=== PATIENT | male | born 1970 | race Two or more races ===

== ENCOUNTER 2016-07-19 13:59 | Outpatient (CLI) | payer BC | END 2016-07-19 23:59 | disposition home or self-care (01) | LOC: WOU 13:59 | PROVIDERS: ATTEND Podiatrist Foot & Ankle Surgery | DX: L02.612 Cutaneous abscess of left foot (principal); E11.42 Type 2 diabetes mellitus with diabetic polyneuropathy; L84 Corns and callosities; Z72.0 Tobacco use; Z79.84 Long term (current) use of oral hypoglycemic drugs; R23.8 Other skin changes | CPT/HCPCS: 10140; 87070; 87077; 87186; A6402 ==

== ENCOUNTER → 2016-09-23 | Outpatient (CLI) | payer BC | END | disposition home or self-care (01) | LOC: WOU 08:35 | PROVIDERS: ATTEND Podiatrist Foot & Ankle Surgery | DX: E11.42 Type 2 diabetes mellitus with diabetic polyneuropathy (principal); M20.42 Other hammer toe(s) (acquired), left foot; L84 Corns and callosities; Z72.0 Tobacco use; Z79.84 Long term (current) use of oral hypoglycemic drugs; Z79.4 Long term (current) use of insulin | CPT/HCPCS: 99214; A6402; G0463 ==

== ENCOUNTER 2017-03-28 08:15 | Outpatient (CLI) | payer BC ==
[2017-03-28] MEDS ORDERED: PHEN37.511 PO (11:37)
== END 2017-03-28 23:59 | disposition home or self-care (01) ==
LOC: WOU 08:15
PROVIDERS: ATTEND Podiatrist Foot & Ankle Surgery
DX: E11.621 Type 2 diabetes mellitus with foot ulcer (principal); L97.519 Non-pressure chronic ulcer of other part of right foot with unspecified severity; L02.612 Cutaneous abscess of left foot; L03.116 Cellulitis of left lower limb; R60.0 Localized edema; L84 Corns and callosities; M20.42 Other hammer toe(s) (acquired), left foot; M20.41 Other hammer toe(s) (acquired), right foot; E11.42 Type 2 diabetes mellitus with diabetic polyneuropathy; Z72.0 Tobacco use
CPT/HCPCS: 11042; 99215; A6402; G0463

== ENCOUNTER 2017-03-28 10:54 | Inpatient (IN) | payer BC ==
[~2017-03-28] VITALS: Ht 167.6 cm; Wt 83.9 kg
--- NOTE | 2017-03-28 11:00 | NUR ---
PT AMBULATORY TO ER BED 12. WAS SENT BY DR BERNSTEIN FOR POSSIBLE ADMISSION FOR SURGERY. BILAT FOOT BLISTERS IN BETWEEN 5TH AND FOURTH DIGITS. PT STATES L FOOT HUIRST WORST. STABLE VITALS. AWAITING MD HILL.
[2017-03-28] MEDS ORDERED: PHEN37.511 PO (11:37)
--- NOTE | 2017-03-28 11:50 | NUR ---
RADIOLOGY AT BEDSIDE FOR L FOOT XRAY.
[2017-03-28] MEDS ORDERED: HYDROCODONE/APAP 5/325MG 1 EACH TABLET ONE (11:51)
[2017-03-28 12:00] LABS: BASOPHILS # (AUTO) 0.1 /CMM (0.0-0.2); BASOPHILS % (AUTO) 0.7 % (0.0-2.0); EOSINOPHILS # (AUTO) 0.5 /CMM (0.0-0.7); EOSINOPHILS % (AUTO) 3.5 % (0.0-6.0); HEMATOCRIT 39 % (39-51); HEMOGLOBIN 13.5 g/dL (13.5-17.5); LYMPHOCYTES # (AUTO) 2.3 /CMM (0.8-4.8); LYMPHOCYTES % (AUTO) 14.5 % (20.0-44.0); MEAN CORPUSCULAR HEMOGLOBIN 29 PG (26.0-33.0); MEAN CORPUSCULAR HGB CONC 35 g/dl (31.0-36.0); MEAN CORPUSCULAR VOLUME 83 fL (80-96); MONOCYTES % (AUTO) 6.3 % (2.0-12.0); NEUTROPHILS # (AUTO) 11.7 /CMM (1.8-8.9); PLATELET COUNT (AUTO) 256 /CMM (150-450); RDW COEFFICIENT OF VARIATION 11.7 (11.5-15.0); RED BLOOD CELL COUNT(AUTO) 4.65 MIL/uL (4.5-6.0); WHITE BLOOD COUNT (AUTO) 15.6 K/uL (4.3-11.0)
[2017-03-28] MEDS ORDERED: VANCOMYCIN 1 GM in IV D5W 250 ML IV ONE (12:00)
[2017-03-28] MEDS ORDERED: PIPERACILLIN /TAZOBACTAM 3.375 G in IV D5W 50 ML IV ONE (12:00)
[2017-03-28] MEDS ORDERED: HYDROCODONE/APAP 5/325MG 1 EACH TABLET PO ONE (12:00)
[2017-03-28 12:10] LABS: CALCIUM, SERUM 8.4 mg/dL (8.5-10.1); POTASSIUM 4.4 mmol/L (3.5-5.1)
[2017-03-28 12:15] LABS: BILIRUBIN,DIRECT 0.1 mg/dL (0.0-0.2); BILIRUBIN,TOTAL 0.4 mg/dL (0.2-1.0); TOTAL PROTEIN, SERUM 7.3 g/dL (6.4-8.2)
--- NOTE | 2017-03-28 12:35 | NUR ---
PT TO RADIOLOGY FOR FOOT MRI VIA WHEELCHAIR.
--- NOTE | 2017-03-28 14:34 | NUR ---
CALLED [facility]-ID MANAGER STORY WAS PAGED.
--- NOTE | 2017-03-28 15:49 | NUR ---
MS RN OPENING NOTES RECEIVED PT FROM ER NURSE IN STABLE CONDITION. PT WILL BE ADMITTED FOR LEFT LOWER EXTREMITY CELLULITIS. HE WILL GO TO ROOM 201 RATHER THAN 205. PT IS A/O X4. NO SOB OR SIGNS OF DISTRESS NOTED. BREATHING IS EVEN AND UNLABORED. PT IS TOLERATING RA AND SATING AT 100%. WOUND NOTED ON LEFT 5TH TOE. ORDERS FROM DR. BRITTON FOR I & D PROCEDURAL CONSENTS REVIEWED AND NOTED. PT IS NPO EXCEPT MEDS ORDERED. HE WAS ORIENTED TO HIS ROOM AND PROVIDED TOILETRIES ALONG WITH INSTRUCTIONS ON USE OF HIS CALL LIGHT. PT VERBALIZED UNDERSTANDING. DR. LOZA WAS NOTIFIED OF PT'S ARRIVAL. BED IN LOW LOCKED POSITION, SIDE RAILS UP X2, CALL LIGHT WITHIN REACH. WILL CONTINUE TO MONITOR
[2017-03-28] MEDS ORDERED: GADOVERSETAMIDE 2.5 MMOL/5 ML VIAL IJ ONE (16:59)
[2017-03-28] MEDS ORDERED: GADOVERSETAMIDE 5 MMOL/10 ML VIAL IJ ONE (16:59)
[2017-03-28] MEDS: HYDROCODONE/APAP 10/325MG 1 EA TABLET PO PRN (17:58)
--- NOTE | 2017-03-28 18:11 | NUR ---
MS RN CLOSING NOTES PT REMAINS STABLE SINCE ADMISSION. VITAL SIGNS STABLE THROUGHOUT SHIFT. CONSENTS COMPLETED FOR UPCOMING PROCEDURE. WILL ENDORSE TO NIGHTSHIFT NURSE TO COMPLETE THE CHECKLIST. ALL NEEDS MET DURING SHIFT AND DUE MEDS GIVE. DR. LOZA NOTIFIED TO INPUT ADMISSION ORDERS AND STATES "OK". WILL ENDORSE TO NIGHTSHIFT NURSE FOR LEROY
[2017-03-28] MEDS ORDERED: ACETAMINOPHEN 325 MG TABLET PO PRN (19:00)
[2017-03-28] MEDS ORDERED: HYDROCODONE/APAP 5/325MG 1 EACH TABLET PO PRN (19:00)
[2017-03-28] MEDS ORDERED: Z GUARD REMEDY 2 OZ OINT TP PRN (19:00)
[2017-03-28] MEDS ORDERED: MAG HYDROX/AL HYDROX/SIMETH 30 ML UDC PO PRN (19:00)
[2017-03-28] MEDS ORDERED: MAGNESIUM HYDROXIDE 30 ML UDC PO PRN (19:00)
[2017-03-28] MEDS ORDERED: ONDANSETRON HCL/PF 4 MG/2 ML VIAL IVP PRN (19:00)
--- NOTE | 2017-03-28 19:00 | NUR ---
MS RN NOTE: PATIENT RESTING IN BED, A/OX3. STABLE, NO ACUTE DISTRESS NOTED. BREATHING EVEN AND UNLABORED, NO SOB NOTED. BED LOCKED AND IN LOWEST POSITION, CALL LIGHT IN REACH. WILL CONTINUE TO MONITOR.
--- NOTE | 2017-03-28 19:36 | NUR ---
MS RN NOTES PT DOWN IN THE LOBBY. STATED HE MUST SPEAK TO HIS FRIEND. PT STATES THAT HE WILL BE RIGHT BACK UP. NIGHTSHIFT NURSE WITNESS TO THIS ALONG WITH .
--- NOTE | 2017-03-28 19:40 | NUR ---
MR RN NOTES PT INSISTING TO GO DOWN W/O ANY NURSE ACCOMPANY. EDUCATED THE PT HE CANNOT GO DOWN W/O ACCOMPANY BUT KEEP ON INSISTING TO GO DOWN TO TALKED TO A FRIEND, TOLD HIM THAT NO NURSE CAN ACCOMPANY HIM AT THIS MOMENT BECAUSE WE CANNOT LEAVE THE FLOOR. PT STILL INSISTING AFSATU WITNESS
[2017-03-28] MEDS ORDERED: FEE PK DOSING 1 MIN EA MC ONE (20:20)
--- NOTE | 2017-03-28 20:50 | NUR ---
1939 UPON RECEIVING REPORT FROM DAY SHIFT RN AND DOING MY ROUNDS PT INSISTING TO GO DOWN TO THE LOBBY W/O ANY NURSE ACCOMPANY. EDUCATED THE PT HE CANNOT GO DOWN W/O ACCOMPANY BUT KEEP ON INSISTING TO GO DOWN TO TALKED TO A FRIEND IN THE LOBBY, PER PT HE'S BEEN GOING DOWN WITHOUT ASSISTANCE EARLIER. TOLD HIM THAT NO NURSE CAN ACCOMPANY HIM AT THIS MOMENT BECAUSE WE CANNOT LEAVE THE FLOOR AND HE SHOULD WAIT AT LEAST 5 MINUTES SO WE CAN ACCOMPANY HIM. PT STILL INSISTING TO GO DOWN, DAY SHIFT RN WAS WITNESS, WHILE DOING MY PATIENT CARE TO DIFFERENT PT. I NOTICE PT WENT DOWN ..SECURITY WAS CALLED TO SEARCH FOR THE PATIENT AND NOWHERE TO BE FOUND...DR DENIA MALIN AWARE...SEARCHING THE WHOLE BUILDING [address] MANAGER WAS NOTIFIED 2009 TRYING TO REACH PT'S PHONE AND TALK TO HIM. 2014 SEARCHING THE WHOLE BUILDING WITH THE SECURITY [address] M[address] DIRECTOR IMMUNOLOGY DR. SNELL 2040 SECURITY CALLED ME THAT THE PT CAME BACK WENT TO E.R, RD MANAGER IS CURRENTLY TALKING TO THE PT [address] ALIS CARMONA. RELAYED PT LEFT HOSPITAL WITH HIS IV INTACT WITH HIM HOWEVER PT CAME BACK AND HE WAS GONE FOR 1:30 HOURS, RD MANAGER CURRENTLY TALKING TO THE PT. PER DR. LOPEZ. NO ORDERS.
--- NOTE | 2017-03-28 21:00 | NUR ---
PT CAME BACK IN THE FLOOR TO HIS ROOM ACCOMPANIED BY THE SECURITY, MEDICAL OFFICE SPECIALIST CALLED ME AND SHE DECIDED TO PUT THE PT BACK TO HIS ROOM AND THAT THE PT JUST HAVE AN ARGUMENT WITH HIS FRIEND. ASKED THE PT IF HE TOOK ANYTHING BECAUSE HE HAS AN IV, HE SAID NO I DID NOT TOOK ANYTHING I JUST GET MY PHONE AND HE WAS SORRY. ASKED PT WHERE DID HE GO PT STATED HE WAS OUT OF THE PREMISES. PT A/O X 4, IN STABLE CONDITION. NOT IN FORM OF DISTRESS, RESPIRATION EVEN AND UNLABORED, PAUL 3. Addendum: 03/29/17 at 0249 by NIKITA GALLEGOS RN ADDENDUM: FULL BODY ASSESSMENT IS DONE NO NEW CHANGE OF CONDITION
[2017-03-28] MEDS: IV NS 0.9% 1,000 ML IV PRN (21:28)
[2017-03-28] MEDS: ZOSYN IVPB 3.375 G in IV D5W 50ml IV SCH (21:29)
[2017-03-28 22:00] VITALS: BP 138/74
--- NOTE | 2017-03-28 23:49 | NUR ---
EDUCATED PT THAT HE CANNOT GO DOWN TO THE LOBBY W/O ACCOMPANY OF A NURSE PT VERBALIZED UNDERSTANDING. HE SAID HE WAS SORRY. I RE ASKED PT WHERE HE REALLY WENT PER PT HE WENT TO HIS HOUSE AT [place] AND HE HAD PERSONAL PROBLEMS WITH HIS FAMILY SO HE TRIES TO GET HIS PHONE.
[2017-03-29] MEDS: ZOSYN IVPB 3.375 G in IV D5W 50ml IV SCH ×5 (00:36→23:49)
[2017-03-29] MEDS: HYDROCODONE/APAP 10/325MG 1 EA TABLET PO PRN ×2 (02:25→19:31)
[2017-03-29] MEDS: VANCOMYCIN 1.5 GM in IV D5W 500ml IV SCH ×2 (05:33→18:31)
--- NOTE | 2017-03-29 06:31 | NUR ---
MS RN CLOSING NOTES PT COMFORTABLY ASLEEP AND EASILY AWAKEN, TOLERATING ROOM AIR 02 SAT 99% IN STABLE CONDITION. NOT IN FORM OF DISTRESS, RESPIRATION EVEN AND UNLABORED. KEPT CLEAN AND DRY AND COMFORTABLE, ALL NURSING CARE RENDERED. NEEDS ATTENDED AND ANTICIPATED, FREQUENT VISUAL CHECK DONE FOR SAFETY EVERY 2 HOURS. NO COMPLAINS OF PAIN. ON LOW BED AT ALL TIMES TO ENSURE SAFETY. SAFE HAZARD FREE ENVIRONMENT PROVIDED. CALL LIGHT WITHIN EASY TO REACH. WILL ENDORSE NEXT SHIFT CONTINUITY OF CARE
[2017-03-29 06:35] LABS: BASOPHILS # (AUTO) 0.1 /CMM (0.0-0.2); BASOPHILS % (AUTO) 1.1 % (0.0-2.0); EOSINOPHILS # (AUTO) 0.5 /CMM (0.0-0.7); EOSINOPHILS % (AUTO) 4.4 % (0.0-6.0); HEMATOCRIT 35 % (39-51); HEMOGLOBIN 12.4 g/dL (13.5-17.5); LYMPHOCYTES # (AUTO) 2.5 /CMM (0.8-4.8); MEAN CORPUSCULAR HEMOGLOBIN 30 PG (26.0-33.0); MEAN CORPUSCULAR HGB CONC 35 g/dl (31.0-36.0); MEAN CORPUSCULAR VOLUME 85 fL (80-96); MONOCYTES # (AUTO) 0.8 /CMM (0.1-1.30); MONOCYTES % (AUTO) 6.9 % (2.0-12.0); NEUTROPHILS # (AUTO) 7.5 /CMM (1.8-8.9); NEUTROPHILS % (AUTO) 65.6 % (43.0-81.0); PLATELET COUNT (AUTO) 236 /CMM (150-450); RDW COEFFICIENT OF VARIATION 12.4 (11.5-15.0); RED BLOOD CELL COUNT(AUTO) 4.17 MIL/uL (4.5-6.0); WHITE BLOOD COUNT (AUTO) 11.4 K/uL (4.3-11.0)
[2017-03-29 06:54] LABS: CALCIUM, SERUM 8.1 mg/dL (8.5-10.1); CREATININE 1.1 mg/dL (0.6-1.3); MAGNESIUM 1.7 mg/dL (1.8-2.4); PHOSPHORUS 3.6 mg/dL (2.5-4.9); POTASSIUM 3.8 mmol/L (3.5-5.1)
[2017-03-29 06:56] LABS: THYROID STIMULATING HORMONE 2.443 uIU/mL (0.358-3.74)
--- NOTE | 2017-03-29 07:37 | NUR ---
RN MS NOTES PT AWAKE IN BED, NO COMPLAINT OF PAIN AT THIS TIME, RESPIRATIONS NORMAL AND NOT LABORED, PT SEEN BY DR. DAY MD INFORMED THAT PT WENT OUT OF THE HOSPITAL LAST NIGHT, PLAN OF CARE DISCUSSED WITH PT, VERBALIZED UNDERSTANDING, IV FLUIDS INFUSING, CALL LIGHT PLACED WITHIN REACH.
[2017-03-29 08:00] VITALS: BP 123/82
[2017-03-29] MEDS: Magnesium 1GM/D5W 100ML PREMIX 100 ML IV SCH ×2 (10:56→15:28)
--- NOTE | 2017-03-29 11:38 | NUR ---
RN MS NOTES PT IN BED, ASLEEP, EASY TO AROUSE, NO COMPLAINT OF PAIN OR ANY DISCOMFORT, SEEN BY DR. LZOA, PLAN OF CARE DISCUSSED WITH PT, VERBALIZED UNDERSTANDING, MD MADE AWARE OF THAT PT WENT OUT OF THE BUILDING LAST NIGHT, IV FLUIDS INFUSING.
--- NOTE | 2017-03-29 12:08 | NUR ---
RN MS NOTES PT IN BED, AWAKE, ALERT AND ORIENTED, NO COMPLAINT OF PAIN AT THIS TIME, BREATHING PATTERN NORMAL, IV FLUIDS INFUSING WELL, CALL LIGHT WITHIN REACH, PICKED UP BY O.R. STAFF FOR SURGERY, LEFT VIA BED IN STABLE CONDITION.
[2017-03-29] MEDS ORDERED: DEXTROSE 50%-WATER 50 ML DISP.SYRIN IV PRN (13:00)
[2017-03-29] MEDS ORDERED: FENTANYL PF 100MCG/2ML AMPUL ONE (13:11)
[2017-03-29] MEDS ORDERED: MIDAZOLAM HCL 2 MG/2ML VIAL ONE (13:11)
[2017-03-29] MEDS ORDERED: LIDOCAINE 2% 50 ML MDV IJ ONE (13:30)
[2017-03-29 14:15] VITALS: BP 101/41
--- NOTE | 2017-03-29 14:15 | NUR ---
RN MS NOTES PT BACK FROM SURGERY VIA [facility], AWAKE, ALERT AND ORIENTED, NO COMPLAINT OF PAIN, ASSISTED TO BED, VITAL SIGNS TAKEN AND RECORDED, DRESSINGS INTACT TO BILATERAL FOOT S/P I&D BY DR. BERNSTEIN, POST OP ORDERS NOTED AND CARRIED OUT, PT EATING RIGHT NOW, KEPT BOTH FEET ELEVATED.
[2017-03-29 16:00] VITALS: BP 138/56
[2017-03-29] MEDS: BLOOD SUGAR DIAGNOSTIC 1 EACH STRIP IN SCH ×2 (17:39→22:04)
[2017-03-29] MEDS: INSULIN REGULAR, HUMAN 100 UNIT/ML 3 ML VIAL SQ PRN ×2 (18:28→22:07)
--- NOTE | 2017-03-29 18:42 | NUR ---
RN MS NOTES PT IN BED, AWAKE, ALERT AND ORIENTED, WATCHING TV, NO COMPLAINT OF PAIN, RESPIRATIONS REGULAR AND NOT LABORED, DRESSINGS TO BILATERAL FOOT INTACT, NO BLEEDING NOTED, ENCOURGED PT TO ELEVATE FEET WITH PILLOWS, VERBALIZED UNDERSTANDING, IV FLUIDS INFUSING WELL.
--- NOTE | 2017-03-29 19:30 | NUR ---
RN NOTES RECEIVED PATIENT UP IN WHEELCHAIR. AO X 3, ABLE TO MAKE NEEDS KNOWN. NO ACUTE DISTRESS NOTED. DENIES ANY PAIN AT THIS TIME. NO SYMPTOMS OF HYPER/HYPOGLYCEMIA. IV SITE PATENT, INTACT; FLUSHED. WOUND DRESSING ON FEET INTACT. SAFETY REMINDERS GIVEN. ON LOW BED WITH BILATERAL UPPER SIDE RAILS UP. CALL WOLFF WITHIN EASY REACH. WILL CONTINUE TO MONITOR.
[2017-03-29 19:39] VITALS: BP 138/76
[2017-03-29 20:00] VITALS: BP 136/76
[2017-03-29] MEDS: ZOLPIDEM TARTRATE 5 MG TABLET PO PRN (22:09)
[2017-03-30] MEDS: ZOSYN IVPB 3.375 G in IV D5W 50ml IV SCH (05:36)
[2017-03-30] MEDS: IV NS 0.9% 1,000 ML IV PRN (05:37)
[2017-03-30] MEDS: VANCOMYCIN 1.5 GM in IV D5W 500ml IV SCH ×2 (06:20→18:00)
--- NOTE | 2017-03-30 06:30 | NUR ---
RN NOTES PATIENT ASLEEP, EASILY AROUSABLE. RESPIRATIONS EVEN. NO SIGNS OF PAIN NOTED. DUE MEDS GIVEN WITH NO ASE NOTED. NEEDS ATTENDED. SAFETY PRECAUTIONS AND COMFORT MEASURES IN PLACE. WILL GIVE REPORT TO DAY SHIFT FOR CONTINUITY OF CARE.
[2017-03-30] MEDS: INSULIN REGULAR, HUMAN 100 UNIT/ML 3 ML VIAL SQ PRN ×3 (06:38→22:28)
[2017-03-30] MEDS: BLOOD SUGAR DIAGNOSTIC 1 EACH STRIP IN SCH ×4 (06:43→22:09)
[2017-03-30 06:44] VITALS: BP 131/78
[2017-03-30 06:56] LABS: BASOPHILS # (AUTO) 0.1 /CMM (0.0-0.2); BASOPHILS % (AUTO) 1.1 % (0.0-2.0); EOSINOPHILS # (AUTO) 0.4 /CMM (0.0-0.7); EOSINOPHILS % (AUTO) 4.6 % (0.0-6.0); HEMATOCRIT 36 % (39-51); HEMOGLOBIN 12.7 g/dL (13.5-17.5); LYMPHOCYTES # (AUTO) 2.2 /CMM (0.8-4.8); LYMPHOCYTES % (AUTO) 23.8 % (20.0-44.0); MEAN CORPUSCULAR HEMOGLOBIN 30 PG (26.0-33.0); MEAN CORPUSCULAR HGB CONC 35 g/dl (31.0-36.0); MEAN CORPUSCULAR VOLUME 86 fL (80-96); MONOCYTES # (AUTO) 0.7 /CMM (0.1-1.30); MONOCYTES % (AUTO) 7.8 % (2.0-12.0); NEUTROPHILS # (AUTO) 5.7 /CMM (1.8-8.9); NEUTROPHILS % (AUTO) 62.7 % (43.0-81.0); PLATELET COUNT (AUTO) 253 /CMM (150-450); RDW COEFFICIENT OF VARIATION 12.4 (11.5-15.0); RED BLOOD CELL COUNT(AUTO) 4.22 MIL/uL (4.5-6.0)
[2017-03-30 07:14] LABS: CALCIUM, SERUM 8.2 mg/dL (8.5-10.1); CREATININE 1.1 mg/dL (0.6-1.3); PHOSPHORUS 3.8 mg/dL (2.5-4.9); POTASSIUM 4.1 mmol/L (3.5-5.1)
--- NOTE | 2017-03-30 07:35 | NUR ---
RN OPENING NOTES RECEIVED PT. PT STABLE AND SLEEPING IN BED. NO S/S OF RESP DISTRESS OR SOB. S/P I/D OF LEFT FOOT ON 03/29. PER SENIOR [facility]S OFFICER REPORT, PT TO BE UP ON CHAIR FREQUENTLY WITH FEET ELEVATED.IV ACCESS LOCATED ON LEFT HAND 20 G INFUSING NS AT 75 ML/HR. SAFETY MEASURES IN PLACE, CALL LIGHT WITHIN REACH. WILL CONTINUE TO MONITOR.
[2017-03-30] MEDS ORDERED: PIPERACILLIN /TAZOBACTAM 3.375 G in IV NS 0.9% 50 ML IV SCH (12:00)
[2017-03-30 16:00] VITALS: BP 146/82
[2017-03-30] MEDS: LEVOFLOXACIN (500MG) 500 MG TABLET PO SCH (18:00)
--- NOTE | 2017-03-30 18:32 | NUR ---
RN CLOSING NOTES PT ASLEEP IN BED. NO S/S OF RESP DISTRESS. PT HAS BEEN ANXIOUS FOR THE PAST 2 HOURS, STATING THAT HE MAY LEAVE AMA. AMA PAPERWORK PREPARED, STILL UNSIGNED. PER DR. BERNSTEIN, IF PT LEAVES HAVE HIM F/U WITH MD AT OFFICE. SAFETY MEASURES IN PLACE CALL LIGHT WITHIN REACH. WILL ENDORSE TO ASSOCIATE STORE DIRECTOR FOR LEROY.
--- NOTE | 2017-03-30 19:25 | NUR ---
RN NOTES RECEIVED PATIENT SITTING UP IN BED. AWAKE, A/ O X 3, ABLE TO VERBALIZE NEEDS. NO SOB NOR ACUTE DISTRESS NOTED. DENIES ANY PAIN AT THIS TIME. NO S/S OF HYPER/HYPOGLYCEMIA NOTED. IV SITE ON LEFT HAND PATENT, INTACT; FLUSHED. WOUND DRESSING ON FEET INTACT. DENIES ANY PAIN OR DISCOMFORT AT THIS TIME. SAFETY PRECAUTIONS OBSERVED. CALL LIGHT WITHIN REACH. ALL NEEDS ATTENDED AND MET. WILL CONTINUE TO MONITOR.
--- NOTE | 2017-03-30 19:44 | NUR ---
PT IS A/O X 4, WENT OUTSIDE TO SMOKE, PT REFUSED TO BE ACCOMPANIED BY ANY STAFF, RISK AND BENEFITS EXPLAINED, PT STILL REFUSED X 3.
--- NOTE | 2017-03-30 19:46 | NUR ---
ANA CATTLE STICKER WENT OUTSIDE TO CHECK ON PT.
[2017-03-30 20:00] VITALS: BP_SYST 146; BP_SYST 151; BP_DIAS 82; BP_DIAS 90
--- NOTE | 2017-03-30 20:00 | NUR ---
PT CAME BACK FROM SMOKING OUTSIDE IN STABLE CONDITION. NO SOB NOR DISTRESS NOTED, ACCOMPANIED BY RENATA PEREZ.
[2017-03-30] MEDS: ZOLPIDEM TARTRATE 5 MG TABLET PO PRN (22:34)
[2017-03-31] MEDS: BLOOD SUGAR DIAGNOSTIC 1 EACH STRIP IN SCH ×3 (05:52→17:42)
[2017-03-31] MEDS: INSULIN REGULAR, HUMAN 100 UNIT/ML 3 ML VIAL SQ PRN ×3 (05:56→17:45)
--- NOTE | 2017-03-31 06:25 | NUR ---
PT WENT DOWN TO SMOKE, ACCOMPANIED WITH GENICE , SUPERVISOR FRAME SAMPLE AND PATTERN.
--- NOTE | 2017-03-31 06:35 | NUR ---
PT CAME BACK FROM SMOKING OUTSIDE, ACCOMPANIED WITH RENATA PEREZ
--- NOTE | 2017-03-31 06:42 | NUR ---
RN NOTES PATIENT IN BED. RESTING AT THIS TIME, A/ O X 3, ABLE TO VERBALIZE NEEDS. NO SOB NOR ACUTE DISTRESS NOTED. DENIES ANY PAIN AT THIS TIME. NO S/S OF HYPER/HYPOGLYCEMIA NOTED. IV SITE ON LEFT HAND PATENT, INTACT; FLUSHED. WOUND DRESSING ON FEET INTACT,. NO BLEEDING NOTED. SAFETY PRECAUTIONS OBSERVED. CALL LIGHT WITHIN REACH. ALL NEEDS ATTENDED AND MET. WILL ENDORSE TO NEXT SHIFT FOR LEROY.
--- NOTE | 2017-03-31 06:49 | NUR ---
PLACED A CALL TO [facility], REGARDING VANCOMYCIN IV ATB, PER [facility] THEY WILL PREPARE IT J[place]. WILL ENDORSE TO NEXT SHIFT .
[2017-03-31 07:04] LABS: CALCIUM, SERUM 8.6 mg/dL (8.5-10.1); CREATININE 0.9 mg/dL (0.6-1.3); POTASSIUM 4.8 mmol/L (3.5-5.1)
--- NOTE | 2017-03-31 07:47 | NUR ---
MS RN OPENING NOTES RECEIVED PT AWAKE IN BED IN NO ACUTE SIGNS OF DISTRESS. A/O X4, SAME VERBALLY RESPONSIVE, DENIES PAIN OR DISCOMFORTS AT THIS TIME. ON ROOM AIR, BREATHING EVEN AND UNLABORED. IV ACCESS ON LEFT HAND G#20 INTACT AND PATENT, IVF OF NS @ 75ML/HR INFUSING WELL , NO SIGNS OF PHLEBITIS OR INFILTRATION NOTED. SAFETY MEASURES IN PLACE, BED IN LOW AND LOCKED POSITION WITH CALL LIGHT WITHIN REACH. WILL CONTINUE TO MONITOR.
[2017-03-31] MEDS: VANCOMYCIN 1.5 GM in IV D5W 500ml IV SCH ×2 (07:50→17:52)
[2017-03-31 08:00] VITALS: BP 131/77
--- NOTE | 2017-03-31 08:10 | NUR ---
RN NOTES ABX VANCOMYCIN IVPB ADMINISTERED PER ENDORSED BY PRODUCT SAFETY TEST ENGINEER TO GIVE SOON IV MED DELIVERED. WILL CONTINUE TO MONITOR
[2017-03-31] MEDS: LEVOFLOXACIN (500MG) 500 MG TABLET PO SCH (18:00)
--- NOTE | 2017-03-31 18:11 | NUR ---
RN NOTES PT EXPLAINED THAT LEVAQUIN IVPB WILL BE INFUSED AFTER VANCOMYCIN IVPB THAT WAS GIVEN AT 6PM BUT PT REFUSED. WILL CONTINUE TO MONITOR.
--- NOTE | 2017-03-31 19:25 | NUR ---
RN NOTES PT IN BED WITH FAMILY AT BEDSIDE. A/O X 4, SAME ABLE TO MAKE NEEDS KNOWN. DR MADISON QUINTERO CHANGED HIS DRESSING ON HIS RIGHT FOOT. PT REFUSED PHOTO TO BE TAKEN THIS AFTERNOON. NO SIGNIFICANT CHANGES NOTED THROUGHOUT THE DAY. ALL NEEDS AND CARE ATTENDED WELL. PT FOR DISCHARGE HOME TONIGHT IF PICC LINE WILL BE INSERTED. DR PARKER INFORMED THAT SHAHIDA WILL COME TO INSERT PICC LINE FOR PT BEFORE D/C. AND CHARGE NURSE AWARE. ENDOSRED TO CARAMEL MAKER NURSE.
--- NOTE | 2017-03-31 19:30 | NUR ---
MS2/RN RECEIVE PATIENT AWAKE, ALERT, ORIENTED, COMFORTABLE, NO C/ON PAIN, NO DISTRESS NOTED. PATIENT WILL BE DISCHARGED HOME AFTER PICC LINE INSERTION. PATIENT IS VERBALIZING THAT IF PICC LINE NOT INSERTED AT 8 PM, HE WILL GO HOME. EDUCATED PATIENT ABOUT GOING HOME AGAINST MEDICAL ADVICE, ITS RISKS. VERBALIZED UNDERSTANDING BUT DID NOT CHANGE HIS MIND. WILL WAIT FOR THE PICC LINE RN.
--- NOTE | 2017-03-31 20:03 | NUR ---
MS2/RN PICC LINE INSERTION IN PROGRESS.
--- NOTE | 2017-03-31 20:20 | NUR ---
MS2/RN PICC LINE INSERTION AT RT. UPPER ARM FINISHED. DISCHARGE PAPER WORKS SIGNED, DISCHARGE INSTRUCTION GIVEN, VERBALIZED UNDERSTANDING. IV LINE REMOVED, PATIENT WAS DISCHARGED FROM UNIT IN STABLE CONDITION PER PROTOCOL.
== END 2017-03-31 20:20 | disposition home health service (06) | DRG 982 ==
LOC: ER 10:57 → MEDSG2 15:09 → WOUND2 16:40
PROC: 0Q9R0ZZ Drainage of Left Toe Phalanx, Open Approach (ICD-10-PCS; principal; 2017-03-29 13:40)
PROC: 0LBV0ZZ Excision of Right Foot Tendon, Open Approach (ICD-10-PCS; principal; 2017-03-29 13:40)
DX: E11.69 Type 2 diabetes mellitus with other specified complication (principal); M86.9 Osteomyelitis, unspecified; E11.621 Type 2 diabetes mellitus with foot ulcer; E11.42 Type 2 diabetes mellitus with diabetic polyneuropathy; E11.51 Type 2 diabetes mellitus with diabetic peripheral angiopathy without gangrene; L02.612 Cutaneous abscess of left foot; E11.65 Type 2 diabetes mellitus with hyperglycemia; L97.529 Non-pressure chronic ulcer of other part of left foot with unspecified severity; L97.519 Non-pressure chronic ulcer of other part of right foot with unspecified severity; F17.200 Nicotine dependence, unspecified, uncomplicated
CPT/HCPCS: 36415; 36569; 73630-TC; 73720-TC; 80048-TC; 80061-TC; 80076-TC; 80202-TC; 82962-TC; 83735-TC; 84100-TC; 84443-TC; 85025-TC; 85652-TC; 86140-TC; 87070-TC; 87075-TC; 87081-TC; 87186-TC; 88305-TC; 88311-TC; A4216; A4606; A6403; A9579; C1751; J1815; J2250; J2543; J3010; J3370; J3475; J3490; J7030; J7060; Z7610

== ENCOUNTER 2017-04-07 09:05 | Outpatient (CLI) | payer BC | END 2017-04-07 23:59 | disposition home health service (06) | LOC: WOU 09:05 | PROVIDERS: ATTEND Podiatrist Foot & Ankle Surgery | DX: E11.621 Type 2 diabetes mellitus with foot ulcer (principal); L97.512 Non-pressure chronic ulcer of other part of right foot with fat layer exposed; L02.612 Cutaneous abscess of left foot; E11.42 Type 2 diabetes mellitus with diabetic polyneuropathy; E11.69 Type 2 diabetes mellitus with other specified complication; M86.8X7 Other osteomyelitis, ankle and foot; Z79.4 Long term (current) use of insulin | CPT/HCPCS: 11042; A6402 ==